=== PATIENT | female | born 1955 | race American Indian/Alaskan Native ===

== ENCOUNTER 2022-02-17 16:52 | Emergency (ER) | payer SELFPAY ==
[2022-02-17] MEDS ORDERED: ALPRAZolam 1 MG TAB PO ONE (19:34)
[2022-02-17] MEDS ORDERED: METOCLOPRAMIDE 10 MG/2 ML INJ IV ONE (19:34)
[2022-02-17] MEDS ORDERED: diphenhydrAMINE 50 MG/ML VIAL IV ONE (19:34)
[2022-02-17] MEDS ORDERED: ACETAMINOPHEN 325 MG TAB PO ONE (19:34)
[2022-02-17] MEDS ORDERED: SODIUM CHLORIDE 0.9% 500 ML 500 ML IV ONE (19:34)
[2022-02-17] MEDS ORDERED: LORazepam 2 MG/ML VIAL IV STA (19:36)
--- NOTE | 2022-02-17 19:37 | Emergency Department Report ---
<ANDREW WHITE - Last Filed: 02/17/22 20:47> ED General Adult HPI - General Chief complaint: High BP Stated complaint: FLANK PAIN Time Seen by Provider: 02/17/22 19:20 Source: patient, EMS (Verbal report received from emergency medical services. EMS documentation not available at time of chart dictation ), RN notes reviewed Mode of arrival: Stretcher Limitations: No Limitations - History of Present Illness Initial comments: Primary CARE doctor: [facility] Patient is a pleasant and cooperative 66-year-old female, with a history of depression, hypertension, currently maintained on metoprolol, and clonidine, crack cocaine use, who presents to the ER today with a complaint of headache, hypertension, and bilateral flank pain. Headache is frontal and bitemporal. Headache is not sudden or thunderclap in nature. Patient not described as the worst headache of her life. Patient has had similar headaches like this in the past. Denies loss of vision. Denies chest pain. Denies central abdominal pain. Reports multiple psychosocial stressors, and recently in dosing crack cocaine consumption a few days ago. She also endorses bilateral flank pain/kidney pain, but denies dysuria. She also endorses chronic left-sided shoulder arthritic pain. She has not really taken anything for pain at home. -: Gradual Location: back, left, right Quality: aching Consistency: intermittent Improves with: rest Worsens with: other (Headache does not have exacerbating or relieving factors. Flank pain increases with bending over.) - Related Data Previous Rx's Medication Instructions Recorded Last Taken Type Acetaminophen [Non-Aspirin Extra 500 mg PO Q6HR PRN #30 tablet 02/17/22 Unknown Rx Strength] Metoclopramide [Reglan] 10 mg PO QID PRN #30 tablet 02/17/22 Unknown Rx cloNIDine HCL [Clonidine HCl] 0.3 mg PO QHS #30 tab 02/17/22 Unknown Rx Allergies Allergy/AdvReac Type Severity Reaction Status Date / Time No Known Allergies Allergy Verified 02/17/22 17:32 ED Review of Systems Constitutional: denies: fever Eyes: denies: eye discharge ENT: denies: epistaxis Respiratory: denies: cough Cardiovascular: denies: chest pain Genitourinary: denies: dysuria Musculoskeletal: back pain Neurological: headache. denies: weakness Psychiatric: anxiety ED Past Medical Hx - Past Medical History Previous Medical History?: Yes Hx Hypertension: Yes Hx Renal Disease: Yes - Surgical History Past Surgical History?: No - Social History Smoking Status: Current Every Day Smoker Substance Use Type: None - Medications Home Medications: Home Medications Medication Instructions Recorded Confirmed Last Taken Type Acetaminophen [Non-Aspirin Extra 500 mg PO Q6HR PRN #30 tablet 02/17/22 Unknown Rx Strength] Metoclopramide [Reglan] 10 mg PO QID PRN #30 tablet 02/17/22 Unknown Rx cloNIDine HCL [Clonidine HCl] 0.3 mg PO QHS #30 tab 02/17/22 Unknown Rx ED Physical Exam - General Limitations: No Limitations General appearance: alert, in no apparent distress - Head Head exam: Present: atraumatic, normocephalic - Eye Eye exam: Present: normal appearance, EOMI. Absent: nystagmus - ENT ENT exam: Present: normal exam, normal orophraynx, mucous membranes moist, normal external ear exam - Neck Neck exam: Present: normal inspection, full ROM. Absent: tenderness, meningismus - Respiratory Respiratory exam: Present: normal lung sounds bilaterally. Absent: respiratory distress, wheezes, rales, rhonchi, stridor, decreased breath sounds - Cardiovascular Cardiovascular Exam: Present: normal rhythm, tachycardia, normal heart sounds, JVD. Absent: bradycardia, irregular rhythm, systolic murmur, diastolic murmur, rubs, gallop - GI/Abdominal GI/Abdominal exam: Present: soft. Absent: distended, tenderness, guarding, rebound, rigid - Extremities Exam Extremities exam: Present: normal inspection, full ROM, other (2+ pulses noted in the bilateral upper and lower extremities. There is no palpable cord. negative Homans sign. Muscular compartments are soft. The pelvis is stable.). Absent: pedal edema, calf tenderness - Back Exam Back exam: Present: normal inspection. Absent: tenderness, CVA tenderness (R), CVA tenderness (L), paraspinal tenderness, vertebral tenderness - Neurological Exam Neurological exam: Present: alert, oriented X3, other (No facial droop. Tongue midline. Extraocular movements intact bilaterally. Facial sensation intact to light touch in V1, V2, V3 distribution bilaterally. 5 and a 5 strength in 4 extremities. Sensation intact to light touch in 4 extremities.). Absent: motor sensory deficit - Psychiatric Psychiatric exam: Present: anxious - Skin Skin exam: Present: warm, dry, intact, normal color. Absent: rash ED Course - Reevaluation(s) Reevaluation #1: 02/17/22 20:16 Differential diagnosis, include but not limited to: Migraine headache, cluster headache, hemorrhage, AAA, renal colic, urinary tract infection, crack cocaine dependence Assessment and plan: 66-year-old female, who is afebrile, but hypertensive, also tachycardic, overall tachycardia improved, with a complaint of headache and back pain/flank pain, crack cocaine use 2 days ago. She is clinically sober with a GCS of 15. We will treat the patient's headache with appropriate medications. We will start her on gentle IV fluids, obtain appropriate laboratory studies, urinalysis, noncontrast CT scan of the brain, CT scan abdomen pelvis without IV contrast. She also endorses nonspecific left-sided shoulder pain, no fractures or dislocations noted 02/17/22 20:19 Patient reports that she takes clonidine, 0.3 mg for blood pressure, in addition to metoprolol. Reports that she is currently out of her clonidine. She does not need metoprolol. 02/17/22 20:39 CT scan of the brain negative for acute findings. CT scan abdomen pelvis negative for acute findings. Laboratory studies unremarkable. Awaiting urinalysis. Patient endorses improvement in symptoms. 02/17/22 20:47 Patient not able to provide a urine sample. She is currently resting comfortably in stretcher. Care will be transferred to the oncoming ER provider to follow-up on urine sample. If requires antibiotics, will defer to my colleague to select appropriate antibiotics. However, I suspect that the urinalysis will be negative, the patient should be suitable for discharge - EJ/Peripheral Line Neck R Time Out Performed: Yes Indications: nurses unable to establis Skin Cleansed in Sterile Fashion: Yes Size: 20 Dressing Placed: Tegaderm Patient Tolerated Procedure: well - Pulse Oximetry Interpretation Digit-Finger Initial Pulse Oximetry Readin O2 Sat by Pulse Oximetry: 99 Actions Taken: none ED Medical Decision Making - Lab Data Result diagrams: 02/17/22 19:34 02/17/22 20:03 Vital Signs 02/17/22 02/17/22 02/17/22 17:29 19:15 19:53 Temperature 97.1 F L 98 F 97.8 F Pulse Rate 105 H 105 H 82 Respiratory 18 20 Rate Blood Pressure 180/130 172/129 Blood Pressure 180/130 [Left] O2 Sat by Pulse 98 98 100 Oximetry Lab Results 02/17/22 02/17/22 02/17/22 Range/Units 19:34 20:03 20:03 Hgb 14.9 H (10.1-14.3) gm/dl Hct 47.5 H (30.3-42.9) % Plt Count 335 (140-440) K/mm3 Carbon Dioxide 23 (22-30) mmol/L BUN 23 H (7-17) mg/dL Creatinine 1.2 (0.6-1.2) mg/dL Estimated GFR 55 ml/min BUN/Creatinine Ratio 19 % Glucose 135 H (65-100) mg/dL Calcium 10.3 H (8.4-10.2) mg/dL Total Bilirubin 0.40 (0.1-1.2) mg/dL AST 35 (5-40) units/L ALT 25 (7-56) units/L Alkaline Phosphatase 101 (35-129) units/L Total Creatine Kinase 115 (30-135) units/L Total Protein 9.3 H (6.3-8.2) g/dL Albumin 5.1 H (3.9-5) g/dL Albumin/Globulin Ratio 1.2 % - EKG Data -: EKG Interpreted by Ct EKG shows normal: sinus rhythm Rate: normal - EKG Data 02/17/22 20:11 EMS prehospital EKG is interpreted by myself. Interpretation at 18: 11 PM Sinus rhythm, tachycardia, rate 103 bpm. Left axis deviation, borderline left anterior fascicular block, left ventricular hypertrophy, and atrial origin. QTC 4 2 3 ms. Abnormal EKG. This is not a STEMI - Radiology Data Radiology results: pending, report reviewed, image reviewed LEFT SHOULDER, 3 VIEWS INDICATION / CLINICAL INFORMATION: left shoulder pain. COMPARISON: None available. FINDINGS: The left shoulder is intact. No visible fracture or dislocation. Mild degenerative changes are present, age appropriate. Incidentally noted is a markedly ectatic/tortuous thoracic aorta. IMPRESSION: No significant acute osseous abnormality of the shoulder. Signer Name: Mary Sims MD Signed: 02/17/2022 7:05 PM Workstation Name: [email or web address] acquired by [email or web address] CT BRAIN: 02/17/2022 INDICATION / CLINICAL INFORMATION: Headache. COMPARISON: None available. FINDINGS: BRAIN/INTRACRANIAL STRUCTURES: Unenhanced CT images of the brain demonstrate no evidence of acute abnormality. Ventricles and sulci are normal in size and shape. Moderate chronic microangiopathic white matter hypoattenuation is present in the cerebral hemispheric white matter, consistent with chronic small vessel ischemic change. There is no evidence of hemorrhage or mass. There are no abnormal extra-axial fluid collections. EXTRACRANIAL STRUCTURES: Unremarkable. Incidental note is made of an empty sella. IMPRESSION: No acute abnormality. All CT scans at this location are performed using dose reduction to ALARA by means of automated exposure control. Signer Name: Den Gama MD Signed: 02/17/2022 7:20 PM Workstation Name: [email or web address] acquired by [employer]/[email or web address] [email or web address] CT abdomen pelvis wo con INDICATION / CLINICAL INFORMATION: flank pain kidney pain. TECHNIQUE: Axial CT imaging of abdomen and pelvis was obtained without contrast. Coronal and sagittal reformatted imaging obtained and reviewed. All CT scans at this location are performed using CT dose reduction for ALARA by means of automated exposure control. COMPARISON: None available. FINDINGS: CT abdomen without IV contrast demonstrates grossly normal appearance of the liver, spleen, pancreas, kidneys, and adrenal glands. Abdominal aorta is of normal caliber. Gallbladder is present without obvious abnormality. CT pelvis without contrast does not demonstrate abnormal mass, free fluid, or focal inflammatory change. A normal appendix is present within the right lower quadrant. GI tract is within normal limits. The uterus is somewhat lobulated with appearance suggestive of multiple small fibroids. No visible adnexal mass. Visualized lung bases do not demonstrate ac lummi pulmonary or pleural disease. Review of osseous structures demonstrates multilevel degenerative disc disease within the lumbar spine but no acute osseous abnormality. IMPRESSION: 1. No acute finding within the abdomen or pelvis. 2. Incidental finding of mildly enlarged lobulated uterus with ap pearance most suggestive of multiple small fibroids. Signer Name: Mary Sims MD Signed: 02/17/2022 7:33 PM Workstation Name: [id number] ED Disposition Clinical Impression: Cocaine abuse, Flank pain, History of crack cocaine use Disposition: HOME / SELF CARE / HOMELESS Is pt being admited?: No Does the pt Need Aspirin: No Condition: Good Instructions: Hypertension (ED), Substance Use Disorder and Mental Illness, Flank Pain, Adult, [id number] Additional Instructions: Recommend that patient avoid consumption of alcohol, tobacco, and crack cocaine. Patient may take Tylenol and Reglan as needed for headache, and Tylenol as needed for left-sided shoulder pain. Please see to the clonidine as prescribed. Avoid heavy lifting, strenuous physical activities. Patient may alternate ice packs and heat packs as needed for physical pain. Please follow-up with your primary care doctor within the next 7 to 10 days. Please return to the emergency room right away with new pain, worsened pain, migration of pain, projectile vomiting, change in mental status, confusion, inability tolerate liquid feeds, new, worsened or different symptoms not present on the initial emergency room evaluation Prescriptions: cloNIDine HCL [Clonidine HCl] 0.3 mg PO QHS #30 tab Acetaminophen [Non-Aspirin Extra Strength] 500 mg PO Q6HR PRN #30 tablet PRN Reason: Pain , Severe (7-10) Metoclopramide [Reglan] 10 mg PO QID PRN #30 tablet PRN Reason: Headache Referrals: [facility] [Provider Group] - 7-10 days <JULIA EDMONDSON - Last Filed: 02/18/22 00:30> ED Review of Systems ROS: Stated complaint: FLANK PAIN Other details as noted in HPI ED Course Vital Signs 02/17/22 02/17/22 02/17/22 17:29 19:15 19:53 Temperature 97.1 F L 98 F 97.8 F Pulse Rate 105 H 105 H 82 Respiratory 18 20 Rate Blood Pressure 180/130 172/129 Blood Pressure 180/130 [Left] O2 Sat by Pulse 98 98 100 Oximetry O2 Sat by Pulse Oximetry [ Digit-Finger] 02/17/22 02/17/22 20:30 20:48 Temperature 97.8 F Pulse Rate 105 H Respiratory 18 Rate Blood Pressure Blood Pressure 153/118 [Left] O2 Sat by Pulse 98 Oximetry O2 Sat by Pulse 99 Oximetry [ Digit-Finger] - Reevaluation(s) Reevaluation #2: 02/18/22 00:24 This patient signed out to me at 9 PM last night while waiting for urinalysis to determine whether patient needs any antibiotics from going home. Dr. White has had patient prepared to be discharge home but just wanted to be sure that she did not need antibiotics for UTI. Patient came in with headache, high blood pressure and concern for bilateral flank pain. This was the reason why urinalysis was crucial and ordered. Urinalysis result came back to be wnl so patient woke up and be ready to be discharged home to close follow up with her PCP. 02/18/22 00:27 ED Medical Decision Making - Lab Data Result diagrams: 02/17/22 19:34 02/17/22 20:03 Critical care attestation.: If time is entered above; I have spent that time in minutes in the direct care of this critically ill patient, excluding procedure time. ED Disposition Is pt being admited?: No Does the pt Need Aspirin: No Time of Disposition: 00:30
--- NOTE | 2022-02-17 20:09 | XRay Report ---
LEFT SHOULDER, 3 VIEWS INDICATION / CLINICAL INFORMATION: left shoulder pain. COMPARISON: None available. FINDINGS: The left shoulder is intact. No visible fracture or dislocation. Mild degenerative changes are presen t, age appropriate. Incidentally noted is a markedly ectatic/tortuous thoracic aorta. IMPRESSION: No significant acute osseous abnormality of the shoulder. Signer Name: Mary Sims MD Signed: 02/17/2022 8:05 PM Workstation Name: [id number]
[2022-02-17 20:24] LABS: Hematocrit 47.5 % (30.3-42.9); Hemoglobin 14.9 gm/dl (10.1-14.3)
--- NOTE | 2022-02-17 20:25 | Cat Scan Report ---
CT BRAIN: 02/17/2022 INDICATION / CLINICAL INFORMATION: Headache. COMPARISON: None available. FINDINGS: BRAIN/INTRACRANIAL STRUCTURES: Unenhanced CT images of the brain demonstrate no evidence of acute abn ormality. Ventricles and sulci are normal in size and shape. Moderate chronic microangiopathic white matter hypoattenuation is present in the cerebral hemispheric white matter, consistent with chronic small vessel ischemic change. There is no evidence of hemorrhage or mass. There are no abnormal extra-axial fluid collections. EXTRACRANIAL STRUCTURES: Unremarkable. Incidental note is made of an empty sella. IMPRESSION: No acute abnormality. All CT scans at this location are performed using dose reduction to ALARA by means of automated expos ure control. Signer Name: Den Gama MD Signed: 02/17/2022 8:20 PM Workstation Name: [id number]
[2022-02-17 20:29] LABS: Albumin 5.1 g/dL (3.9-5); Calcium 10.3 mg/dL (8.4-10.2)
[2022-02-17 20:32] VITALS: BP 153/118
--- NOTE | 2022-02-17 20:38 | Cat Scan Report ---
CT abdomen pelvis wo con INDICATION / CLINICAL INFORMATION: flank pain kidney pain. TECHNIQUE: Axial CT imaging of abdomen and pelvis was obtained without contrast. Coronal and sagittal reformatte d imaging obtained and reviewed. All CT scans at this location are performed using CT dose reduction for ALARA by means of automated exposure control. COMPARISON: None available. FINDINGS: CT abdomen without IV contrast demonstrates grossly normal appearance of the liver, spleen, pancreas, kidneys, and adrenal glands. Abdominal aorta is of normal caliber. Gallbladder is present without ob vious abnormality. CT pelvis without contrast does not demonstrate abnormal mass, free fluid, or focal inflammatory jameson ge. A normal appendix is present within the right lower quadrant. GI tract is within normal limits. T he uterus is somewhat lobulated with appearance suggestive of multiple small fibroids. No visible adn exal mass. Visualized lung bases do not demonstrate acute pulmonary or pleural disease. Review of osseous structures demonstrates multilevel degenerative disc disease within the lumbar spin e but no acute osseous abnormality. IMPRESSION: 1. No acute finding within the abdomen or pelvis. 2. Incidental finding of mildly enlarged lobulated uterus with appearance most suggestive of multiple small fibroids. Signer Name: Mary Sims MD Signed: 02/17/2022 8:33 PM Workstation Name: [id number]
[2022-02-17] MEDS ORDERED: SODIUM CHLORIDE 0.9% 1000 ML 1,000 ML IV ONE (20:47)
[2022-02-17 23:34] LABS: Bilirubin,Urine NEG (Negative); Blood,Urine NEG (Negative); Color,Urine Yellow (Yellow); Mucus,Urine 1+ /HPF; Urobilinogen,Urine < 2.0 mg/dL (<2.0)
== END 2022-02-18 01:14 | disposition home or self-care (01) ==
LOC: ED 16:52
DX: F14.10 Cocaine abuse, uncomplicated (principal); R51.9 Headache, unspecified; R10.9 Unspecified abdominal pain; I10 Essential (primary) hypertension; F17.200 Nicotine dependence, unspecified, uncomplicated; Z79.899 Other long term (current) drug therapy
CPT/HCPCS: 36415; 36569; 70450; 73030; 74176; 80053; 81001; 82550; 85014; 85018; 85049; 96374; 96375; 99285; J2060; J2765; J7040

== ENCOUNTER 2022-07-17 20:36 | Emergency (ER) | payer MEDICARE ==
[2022-07-17 20:47] VITALS: BP 191/115
== END 2022-07-18 18:30 ==
LOC: ED 07-18 18:29
DX: Z13.30 Encounter for screening examination for mental health and behavioral disorders, unspecified (principal); Z53.21 Procedure and treatment not carried out due to patient leaving prior to being seen by health care provider